=== PATIENT | male | born 1975 | race Caucasian/White ===

== ENCOUNTER 2018-07-13 05:02 | Observation (INO) ==
[2018-07-13] MEDS ORDERED: Nitroglycerin 0.4 MG TAB.SUBL SL PRN (05:12)
--- NOTE | 2018-07-13 05:43 | Emergency Department Note ---
Disposition Clinical Impression: History of automatic internal cardiac defibrillator (AICD) Chest pain Qualifiers: Chest pain type: unspecified Qualified Code(s): R07.9 - Chest pain, unspecified Disposition: Admitted As Inpatient Condition: Fair [facility]Primary Care Provider[facility] - Forms: ED Satisfaction Letter Time of Disposition: 06:42 General Adult HPI - General Chief complaint: ED Shortness of Breath/Dyspnea Stated complaint: Chest Pain Time Seen by Provider: 07/13/18 05:09 Source: patient, EMS Mode of arrival: EMS Limitations: no limitations Nursing Notes Reviewed: Yes Vital Signs Reviewed: Yes - History of Present Illness HPI Narrative: 42-year-old male with a history of CAD with AICD, hypertension, PE on Xarelto presents for evaluation of chest pain. Patient since via EMS. States that chest pain started earlier this morning. States it he has been feeling short of breath mostly with exertion. States he cannot walk up a flight of stairs. Patient also notes lower extremity swelling. States that the chest pain started with exertion and not completely resolve with rest. States that it was across anterior part of his chest and notes diaphoresis with nausea but no vomiting. Patient also felt that his AICD did fire. No abdominal pain. Patient states that he left the [facility] inpatient facility due to a right toe infection. Patient does admit to drinking alcohol earlier in the evening. Patient received 4 baby aspirin per EMS prior to ED arrival Pain Scale: 6 - Related Data Home Medications Medication Instructions Recorded Confirmed Unable To Obtain [Unable to Obtain] 07/13/18 07/13/18 Allergies Allergy/AdvReac Type Severity Reaction Status Date / Time No Known Allergies Allergy Verified 07/13/18 05:20 All systems ED: reviewed and negative except as stated. Constitutional: Denies: fever Cardiovascular: Reports: chest pain Respiratory: Reports: dyspnea. Denies: cough, sputum production Gastrointestinal: Reports: nausea. Denies: abdominal pain, vomiting Past Medical History - Past Medical History Source: patient Medical history: Reports: hypertension, other Psychiatric history: Reports: PTSD - Social History Smoking Status: Current every day smoker Smokeless Tobacco Status: No Alcohol use: Reports: recent Drug use: Reports: none Physical Exam - General Limitations: no limitations General appearance: alert, in no apparent distress - Head Head exam: atraumatic, normocephalic, normal inspection - Eye Eye exam: Present: normal appearance, PERRL, EOMI - ENT ENT exam: normal exam, normal oropharynx, mucous membranes moist - Neck Neck exam: Present: normal inspection - Chest Chest inspection: Present: normal inspection, symmetric chest wall rise - Respiratory Respiratory exam: Present: normal lung sounds bilaterally. Absent: respiratory distress - Cardiovascular Cardiovascular exam: Present: regular rate, normal rhythm - Abdominal Exam Abdominal exam: Present: soft, Non-Tender - Extremities Exam Extremities exam: Present: normal inspection. Absent: pedal edema - Back Exam Back exam: Present: normal inspection - Neurological Exam Neurological exam: Present: alert, oriented X3, CN II-XII intact - Skin Skin exam: Present: warm, dry, intact, normal color Course Course Narrative: Patient presents for concern of ACS and chest pain. Patient states that he has been taking his Xarelto as directed. Patient's clinical exam and history are most consistent with ACS unstable angina. Patient will get cardiopulmonary evaluation with EKG, chest x-ray troponin. - Reevaluation(s) Reevaluation #1: Patient seen and examined. Patient's blood pressure did improve with the nitroglycerin however the patient states that he enter never really helps with his pain. Patient does have a concerning history with diaphoresis and concerns of defibrillation with prior history of CHF and CAD. Patient states that he is willing to be admitted. Time: 06:41 Vital Signs Temperature 98.4 F 07/13/18 05:20 Pulse Rate 85 07/13/18 05:20 Respiratory Rate 22 07/13/18 05:20 Blood Pressure 162/89 07/13/18 05:20 O2 Sat by Pulse Oximetry 96 07/13/18 05:20 Temperature 98.4 F 07/13/18 05:20 Pulse Rate 99 07/13/18 06:36 Respiratory Rate 20 07/13/18 06:36 Blood Pressure 133/86 07/13/18 06:36 O2 Sat by Pulse Oximetry 96 07/13/18 06:36 Oxygen Delivery Oxygen Delivery Room Air Medical Decision Making - [facility] Narrative Medical decision making narrative: Patient presented for concerns of chest pain. Does have a concerning history of ACS unstable angina. Patient's initial EKG and troponin were negative. Patient's AICD. Awaiting report. Patient be signed out to the day shift provider. Patient does have a history however the patient's most consistent with ACS patient has been taking his anticoagulation as directed. - Lab Data Lab results reviewed: Yes I reviewed the patient's lab results. Result diagrams: 07/13/18 05:54 07/13/18 05:54 Lab Results 07/13/18 07/13/18 07/13/18 Range/Units 05:51 05:54 05:54 WBC 7.0 (4.3-11.1) K/mcL RBC 3.73 L (4.19-5.50) M/mcL Hgb 12.0 L (12.9-16.9) g/dL Hct 35.6 L (37.5-50.1) % MCV 95.4 (83.0-100.0) fL MCH 32.2 (28.0-33.3) pg MCHC 33.7 (31.6-35.5) g/dL RDW 15.5 H (11.5-14.5) % Plt Count 116 L (140-400) K/mcL MPV 8.7 L (9.4-12.4) fL Immature Gran % 0.4 (0-4) % Seg Neutrophils % 61.4 % Lymphocytes % 25.9 % Monocytes % 7.3 % Eosinophils % 4.4 % Basophils % 0.6 % Neutrophils # 4.3 (1.6-8.9) K/mcL Lymphocytes # 1.8 (0.6-4.6) K/mcL Monocytes # 0.5 (0.0-1.3) K/mcL Eosinophils # 0.3 (0.0-0.6) K/mcL Basophils # 0.0 (0.0-0.2) K/mcL PT 12.0 (9.4-12.1) Seconds INR 1.1 APTT 35.1 (26.0-36.0) Seconds Sodium (136-145) mEq/L Potassium (3.5-5.1) mEq/L Chloride (98-107) mEq/L Carbon Dioxide (23-29) mEq/L BUN (6-20) mg/dL Creatinine (0.70-1.30) mg/dL Est GFR ( Amer) (> 60) Est GFR (Non-Af Amer) (> 60) BUN/Creatinine Ratio (6-26) Glucose (70-105) mg/dL Calculated Osmolality (280-300) Calcium (8.6-10.3) mg/dL Troponin I (< 0.04) ng/mL B-Natriuretic Peptide 46 (Less than 100) pg/mL 07/13/18 Range/Units 05:54 WBC (4.3-11.1) K/mcL RBC (4.19-5.50) M/mcL Hgb (12.9-16.9) g/dL Hct (37.5-50.1) % MCV (83.0-100.0) fL MCH (28.0-33.3) pg MCHC (31.6-35.5) g/dL RDW (11.5-14.5) % Plt Count (140-400) K/mcL MPV (9.4-12.4) fL Immature Gran % (0-4) % Seg Neutrophils % % Lymphocytes % % Monocytes % % Eosinophils % % Basophils % % Neutrophils # (1.6-8.9) K/mcL Lymphocytes # (0.6-4.6) K/mcL Monocytes # (0.0-1.3) K/mcL Eosinophils # (0.0-0.6) K/mcL Basophils # (0.0-0.2) K/mcL PT (9.4-12.1) Seconds INR APTT (26.0-36.0) Seconds Sodium 134 L (136-145) mEq/L Potassium 4.3 (3.5-5.1) mEq/L Chloride 102 (98-107) mEq/L Carbon Dioxide 19 L (23-29) mEq/L BUN 15 (6-20) mg/dL Creatinine 0.80 (0.70-1.30) mg/dL Est GFR ( Amer) > 60 (> 60) Est GFR (Non-Af Amer) > 60 (> 60) BUN/Creatinine Ratio 19 (6-26) Glucose 92 (70-105) mg/dL Calculated Osmolality 278 L (280-300) Calcium 8.6 (8.6-10.3) mg/dL Troponin I < 0.03 (< 0.04) ng/mL B-Natriuretic Peptide (Less than 100) pg/mL - Radiology Data Radiology results reviewed: Yes I reviewed the patient's radiology results. Chest X-Ray 07/13/18 05:13 IMPRESSION: No focal airspace disease. Cardiomegaly and pulmonary venous hypertension. D/ / Shar Sessions / Shar Sessions Interpreting Provider: Shar Sessions - EKG Data EKG #1 EKG attestation: Yes I reviewed and interpreted this EKG. EKG shows normal: sinus rhythm Rate: normal Rhythm: NSR [place]/QRS: normal When compared to previous EKG there are: no significant changes Interpretation: nonspecific ST-T wave changes S.B.A.R. - S.B.A.RVika Situation: Demographics Background: Presenting Complaint Assessment: Vital Signs, Course and respsone to treatment, Patient/Family Expectation Recommendation: Barrier(s) to disposition, Recommendation based on pending studies, treatments, or consults S.B.A.R. Report Given to: Dr. Adry PartidaBVikaAKayley Repor Time: 07:19 Heart Score - Score History: Highly Suspicious EKG: Normal Age: Less than 45 Risk Factors: Equal/Greater than 3 risk factor or history of atherosclerotic disease Troponin: Less than normal limit HEART Score Total: 4
[2018-07-13 06:04] LABS: Basophils % 0.6 %; Eosinophils # 0.3 K/mcL (0.0-0.6); Eosinophils % 4.4 %; Hematocrit 35.6 % (37.5-50.1); Immature Granulocytes % 0.4 % (0-4); Lymphocytes # 1.8 K/mcL (0.6-4.6); Lymphocytes % 25.9 %; Mean Corpuscular HGB Conc 33.7 g/dL (31.6-35.5); Mean Corpuscular Hemoglobin 32.2 pg (28.0-33.3); Mean Corpuscular Volume 95.4 fL (83.0-100.0); Mean Platelet Volume 8.7 fL (9.4-12.4); Monocytes # 0.5 K/mcL (0.0-1.3); Monocytes % 7.3 %; Neutrophils # 4.3 K/mcL (1.6-8.9); Platelet Count 116 K/mcL (140-400); Red Blood Count 3.73 M/mcL (4.19-5.50); Red Cell Distribution Width 15.5 % (11.5-14.5); Segmented Neutrophils % 61.4 %
[2018-07-13 06:33] LABS: Troponin I < 0.03 ng/mL (< 0.04)
[2018-07-13] MEDS ORDERED: *HR* Morphine 2 MG/ML SYRINGE IVP ONE ×2 (06:40→07:57)
[2018-07-13] MEDS ORDERED: Ondansetron 4 MG/2 ML VIAL IVP ONE (06:41)
--- NOTE | 2018-07-13 06:44 | Emergency Department Note ---
Disposition Clinical Impression: History of automatic internal cardiac defibrillator (AICD) Chest pain Qualifiers: Chest pain type: unspecified Qualified Code(s): R07.9 - Chest pain, unspecified Disposition: Admitted As Inpatient Condition: Fair [facility]: [facility] [Primary Care Provider] - Forms: ED Satisfaction Letter Time of Disposition: 06:42 General Adult HPI - General Chief complaint: ED Shortness of Breath/Dyspnea Stated complaint: Chest Pain Time Seen by Provider: 07/13/18 05:09 Source: patient, EMS Mode of arrival: EMS Limitations: no limitations Nursing Notes Reviewed: Yes Vital Signs Reviewed: Yes - History of Present Illness Pain Scale: 6 - Related Data Home Medications Medication Instructions Recorded Confirmed Unable To Obtain [Unable to Obtain] 07/13/18 07/13/18 Allergies Allergy/AdvReac Type Severity Reaction Status Date / Time No Known Allergies Allergy Verified 07/13/18 05:20 Constitutional: Denies: fever Cardiovascular: Reports: chest pain Respiratory: Reports: dyspnea. Denies: cough, sputum production Gastrointestinal: Reports: nausea. Denies: abdominal pain, vomiting Past Medical History - Past Medical History Medical history: Reports: hypertension, other Psychiatric history: Reports: PTSD - Social History Smoking Status: Current every day smoker Smokeless Tobacco Status: No Alcohol use: Reports: recent Drug use: Reports: none Physical Exam - General Limitations: no limitations General appearance: alert, in no apparent distress Course Vital Signs Temperature 98.4 F 07/13/18 05:20 Pulse Rate 85 07/13/18 05:20 Respiratory Rate 22 07/13/18 05:20 Blood Pressure 162/89 07/13/18 05:20 O2 Sat by Pulse Oximetry 96 07/13/18 05:20 Temperature 98.4 F 07/13/18 05:20 Pulse Rate 99 07/13/18 06:36 Respiratory Rate 20 07/13/18 06:36 Blood Pressure 133/86 07/13/18 06:36 O2 Sat by Pulse Oximetry 96 07/13/18 06:36 Oxygen Delivery Oxygen Delivery Room Air Medical Decision Making - Lab Data Lab results reviewed: Yes I reviewed the patient's lab results. Result diagrams: 07/13/18 05:54 07/13/18 05:54 Lab Results 07/13/18 07/13/18 07/13/18 Range/Units 05:51 05:54 05:54 WBC 7.0 (4.3-11.1) K/mcL RBC 3.73 L (4.19-5.50) M/mcL Hgb 12.0 L (12.9-16.9) g/dL Hct 35.6 L (37.5-50.1) % MCV 95.4 (83.0-100.0) fL MCH 32.2 (28.0-33.3) pg MCHC 33.7 (31.6-35.5) g/dL RDW 15.5 H (11.5-14.5) % Plt Count 116 L (140-400) K/mcL MPV 8.7 L (9.4-12.4) fL Immature Gran % 0.4 (0-4) % Seg Neutrophils % 61.4 % Lymphocytes % 25.9 % Monocytes % 7.3 % Eosinophils % 4.4 % Basophils % 0.6 % Neutrophils # 4.3 (1.6-8.9) K/mcL Lymphocytes # 1.8 (0.6-4.6) K/mcL Monocytes # 0.5 (0.0-1.3) K/mcL Eosinophils # 0.3 (0.0-0.6) K/mcL Basophils # 0.0 (0.0-0.2) K/mcL PT 12.0 (9.4-12.1) Seconds INR 1.1 APTT 35.1 (26.0-36.0) Seconds Sodium (136-145) mEq/L Potassium (3.5-5.1) mEq/L Chloride (98-107) mEq/L Carbon Dioxide (23-29) mEq/L BUN (6-20) mg/dL Creatinine (0.70-1.30) mg/dL Est GFR ( Amer) (> 60) Est GFR (Non-Af Amer) (> 60) BUN/Creatinine Ratio (6-26) Glucose (70-105) mg/dL Calculated Osmolality (280-300) Calcium (8.6-10.3) mg/dL Troponin I (< 0.04) ng/mL B-Natriuretic Peptide 46 (Less than 100) pg/mL 07/13/18 Range/Units 05:54 WBC (4.3-11.1) K/mcL RBC (4.19-5.50) M/mcL Hgb (12.9-16.9) g/dL Hct (37.5-50.1) % MCV (83.0-100.0) fL MCH (28.0-33.3) pg MCHC (31.6-35.5) g/dL RDW (11.5-14.5) % Plt Count (140-400) K/mcL MPV (9.4-12.4) fL Immature Gran % (0-4) % Seg Neutrophils % % Lymphocytes % % Monocytes % % Eosinophils % % Basophils % % Neutrophils # (1.6-8.9) K/mcL Lymphocytes # (0.6-4.6) K/mcL Monocytes # (0.0-1.3) K/mcL Eosinophils # (0.0-0.6) K/mcL Basophils # (0.0-0.2) K/mcL PT (9.4-12.1) Seconds INR APTT (26.0-36.0) Seconds Sodium 134 L (136-145) mEq/L Potassium 4.3 (3.5-5.1) mEq/L Chloride 102 (98-107) mEq/L Carbon Dioxide 19 L (23-29) mEq/L BUN 15 (6-20) mg/dL Creatinine 0.80 (0.70-1.30) mg/dL Est GFR ( Amer) > 60 (> 60) Est GFR (Non-Af Amer) > 60 (> 60) BUN/Creatinine Ratio 19 (6-26) Glucose 92 (70-105) mg/dL Calculated Osmolality 278 L (280-300) Calcium 8.6 (8.6-10.3) mg/dL Troponin I < 0.03 (< 0.04) ng/mL B-Natriuretic Peptide (Less than 100) pg/mL - Radiology Data Radiology results reviewed: Yes I reviewed the patient's radiology results. Chest X-Ray 07/13/18 05:13 IMPRESSION: No focal airspace disease. Cardiomegaly and pulmonary venous hypertension. D/ / Shar Sims / Shar Sims Interpreting Provider: Shar Sims - EKG Data EKG #1 EKG attestation: Yes I reviewed and interpreted this EKG. EKG results narrative: EKG shows normal sinus rhythm with ventricular rate of 84. No ST segment elevation or depression. No arrhythmia or ectopy. Attestation Statement - Attestation Attestation: I, Pete Mccarty MD, personally evaluated this patient and discussed their management with the resident physician. I reviewed the resident's note and agree with the documented findings, medical decision making, and plan of care. I personally supervised and was present for the smith/critical portions of the following procedures completed by the resident: EKG interpretation. 42-year-old male presents to the emergency department with a complaint of chest pain. Patient has a cardiac history and has a defibrillator. He states he has been in the hospital at the [facility] for the past 4 days for some infection in his foot. He left there AMA about 7 PM last evening. After leaving he states he developed pain throughout his mid chest and mid upper back. No radiation the pain. He states he walked about 3 blocks and then broke out in a sweat. Some mild shortness of breath. He is currently on Eliquis for a PE. Patient requesting pain medication and states that the nitroglycerin never helps his chest pain. On examination patient is a well-developed well-nourished well-appearing male in no acute distress. He is alert and oriented 3. There is no cyanosis or diaphoresis. He does appear very anxious. Chest is nontender to palpation. Breath sounds are clear and equal bilaterally. Heart regular rate and rhythm. Abdomen soft and nontender with normal bowel sounds. EKG shows normal sinus rhythm with ventricular rate of 84. No ST segment elevation or depression. No arrhythmia or ectopy. Chest x-ray showed cardiomegaly and pulmonary venous hypertension with no focal airspace disease. Labs reviewed. Troponin negative. At morning shift change we are still awaiting reply from the hospitalist regarding admission. Patient is signed out to the oncoming dayshift team, Dr. Rider and Dr. Vigil.
[2018-07-13 06:48] LABS: BUN/Creatinine Ratio 19 (6-26); Blood Urea Nitrogen 15 mg/dL (6-20); Calcium 8.6 mg/dL (8.6-10.3); Carbon Dioxide 19 mEq/L (23-29); Chloride 102 mEq/L (98-107); Glucose 92 mg/dL (70-105); Osmolality,Calculated 278 (280-300); Potassium 4.3 mEq/L (3.5-5.1); Sodium 134 mEq/L (136-145); eGFR For Non-African Americans > 60 (> 60)
[2018-07-13 06:54] LABS: INR 1.1
[2018-07-13 06:57] LABS: Activated Partial Thrombo Time 35.1 Seconds (26.0-36.0)
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
[2018-07-13] MEDS ORDERED: *HR* HYDROcodone/Acet 5/325 mg TABLET PO PRN (10:21)
[2018-07-13] MEDS ORDERED: Acetaminophen 325 MG TABLET PO PRN (10:21)
[2018-07-13] MEDS ORDERED: Naloxone 0.4 MG/ML INJ IVP PRN (10:21)
[2018-07-13] MEDS ORDERED: tiZANidine 4 MG TABLET PO PRN (10:38)
[2018-07-13] MEDS ORDERED: *HR* Morphine 2 MG/ML SYRINGE IVP PRN (10:40)
[2018-07-13] MEDS: *HR* Morphine 2 MG/ML SYRINGE IVP PRN ×3 (12:09→20:15)
--- NOTE | 2018-07-13 13:27 | Cardiology Consult Note ---
Date of Encounter: 07/13/18 Time of Encounter: 13:20 Assessment and Plan (1) SOB (shortness of breath) Current Visit: Yes Status: Acute Per Cardiology: No ECG noted-- order pending. Chief complaint of MOHAN with diaphoresis and dizziness. Reports weight gain recently. Takes Lasix as needed home. ICD/pacer interrogation showed elevations of fluid measurements ongoing since 07/08/2018. We will give Lasix 40 mg IV 1 now and start 40 mg by mouth daily tomorrow. Will supplement strict EDWAR, daily weights, 2 L fluid restriction. Monitor BMP. We will check echo. We will attempt to obtain echo and stress test results from [facility] from February 2018. Of note also reports PE February 2018 and started on Eliquis-- reports compliance denies any active bleeding or blood loss. Discussed and reviewed with Dr. Adeola Tolentino. (2) History of automatic internal cardiac defibrillator (AICD) Current Visit: Yes Status: Acute Per Cardiology: History of [employer] pacemaker/ICD. Reports inserted at [facility] around 2013. Concern for ICD shock, however upon interrogation no therapies delivered and no abnormal arrhythmias. Electrolytes stable. Troponins negative 2. Reports catheterization 2013 showed no blockages. Again will attempt to obtain stress test results from February 2018 from outside facility. Discussion w patient/family: The assessment and plan as outlined above was discussed with the patient and/or family members who expressed understanding and agreement. All questions were answered. Thank you for involving us in the care of your patient. Please call with any questions. History of Present Illness Consult date: 07/13/18 Requesting physician: Ivette Buenrostro Consult reason: ICD Shock, CP Chief complaint: SOB, Dizziness, diaphoresis History of present illness: Mr. Henry is a 42 year old male with a relevant past medical history of hypertension, has Pacer/ICD, history of PE on Eliquis, and nicotine abuse. Cardiology consult for chest pain and concerns of ICD shock. Patient reports increased weight over the past few weeks of about 15 pounds. Additionally, reports increased dyspnea on exertion and frequency diaphoresis. He denies any chest pain symptoms. He reports walking around 4 AM about 4 blocks to a friend's house and got extremely diaphoretic, dizzy, short of breath and had to sit down on the side of the curb. He denied any chest pain at that time. He denied any syncope or falls. Reports concerns of possible ICD shock. He denies any active bleeding or blood loss. He reports history of pacemaker and ICD inserted 2013 at [facility]. He reports February 2018 had stress test and echo completed at the [facility]. He also reports around that time diagnosed with PE and started on Eliquis. He confirms past history of nicotine abuse and currently vapes. He denies any alcohol use or recreational drug use. He reports he takes Lasix as needed at home. Past Med Surg Social Fam HX - Past Medical History Attestation: Yes The following information was validated with the patient. Source: patient Medical history: CHF, hypertension, other Psychiatric history: PTSD - Past Surgical History Surgical History: AICD, pacemaker - Social History Smoking Status: Current every day smoker Smokeless Tobacco Status: No Alcohol use: occasionally, recent Drug use: none - Family History Mother Hx Family Cardiac Disorders: Yes Medications and Allergies Amoxicillin/Clavulanate [Augmentin] 875 mg PO BIDWM 07/13/18 [History] Apixaban [Eliquis] 5 mg PO BID 07/13/18 [History] Carvedilol [Coreg] 6.2 mg PO BID 07/13/18 [History] Lisinopril [Zestril] 5 mg PO DAILY 07/13/18 [History] Omeprazole 40 mg PO DAILY 07/13/18 [History] Sertraline [Zoloft] 200 mg PO DAILY 07/13/18 [History] Tizanidine HCl 4 mg PO TID PRN 07/13/18 [History] Allergy/AdvReac Type Severity Reaction Status Date / Time No Known Allergies Allergy Verified 07/13/18 05:20 All Systems Review: The remainder of the systems were reviewed and are negative - Constitutional Constitutional: weight gain - Cardiovascular Cardiovascular: as per HPI, diaphoresis, dyspnea on exertion, leg edema Physical Examination Vital Signs, Last 4 Hours Temp Pulse Resp BP Pulse Ox 07/13/18 10:14 18 140/94 07/13/18 10:02 97.8 F 81 16 144/89 96 General: Conversant, No Apparent Distress HEENT: Atraumatic, Normocephaly, Mucus Membranes Moist Neck: No JVD, Normal carotid pulses Cardiac: Reg Rate and Rhythm, Normal S1 and S2, No Murmur Lungs: Normal Breath Sounds, No Wheeze, Rales, Rhonchi, Other (Mild conversational dyspnea noted) Neuro: Alert and responsive, No focal deficits noted, Other (Anxious) Abdomen: Soft, Non-Tender Skin: No rashes noted on visualized skin Musculoskeletal: No Chest Wall Tenderness Extremities: No Clubbing, No Cyanosis, Normal Pulses, Other (Trace bilateral nonpitting lower extremity edema) Results 07/13/18 05:54 07/13/18 05:54 Lab Results 07/13/18 07/13/18 07/13/18 05:51 05:54 05:54 WBC 7.0 Hgb 12.0 L Hct 35.6 L Plt Count 116 L INR 1.1 APTT 35.1 Sodium Potassium Chloride Carbon Dioxide BUN Creatinine Glucose Calcium Troponin I B-Natriuretic Peptide 46 07/13/18 07/13/18 05:54 11:00 WBC Hgb Hct Plt Count INR APTT Sodium 134 L Potassium 4.3 Chloride 102 Carbon Dioxide 19 L BUN 15 Creatinine 0.80 Glucose 92 Calcium 8.6 Troponin I < 0.03 < 0.03 B-Natriuretic Peptide - Imaging and Cardiology Echo: pending - EKG Interpretation EKG results cardiology: other (No ECG noted on floor, order for ECG pending) Consult Discharge Plan - Plan [facility]errals: [facility] [Primary Care Provider] -
[2018-07-13] MEDS ORDERED: Furosemide 40 MG/4 ML VIAL IVP ONE (14:30)
[2018-07-13] MEDS ORDERED: *HR* Promethazine 25 MG/ML VIAL IVP PRN (15:03)
[2018-07-13] MEDS ORDERED: *HR* LORazepam 2 MG/ML VIAL IVP PRN ×2 (15:03)
[2018-07-13] MEDS: Nicotine 14 MG PATCH.TD24 TD SCH (16:13)
[2018-07-13] MEDS: Folic Acid 1 MG TABLET PO SCH (16:14)
[2018-07-13] MEDS: Thiamine (B-1) 100 MG TABLET PO SCH (16:14)
[2018-07-13] MEDS: Vitamin B Complex/Vit C/Vit E 1 EACH TABLET PO SCH (16:14)
[2018-07-13] MEDS: Ondansetron ODT 4 MG TAB.RAPDIS SL PRN (16:29)
[2018-07-13] MEDS ORDERED: Nicotine 2 MG GUM BC PRN (16:44)
[2018-07-13] MEDS ORDERED: hydrOXYzine pamoate 25 MG CAPSULE PO PRN (16:44)
[2018-07-13] MEDS ORDERED: Melatonin 3 MG TABLET PO PRN (16:44)
[2018-07-13] MEDS ORDERED: Furosemide 40 MG TABLET PO PRN (16:44)
[2018-07-13] MEDS ORDERED: Thiamine (B-1) 100 MG, Folic Acid 1 MG, MVI, adult with vitamin K 10 ML in 0.9 % Sodi... IVPB SCH (18:00)
[2018-07-13] MEDS: traMADol 50 MG TABLET PO PRN (18:12)
[2018-07-13] MEDS: Gabapentin 400 MG CAPSULE PO SCH ×2 (18:12→20:14)
[2018-07-13] MEDS: *HR* LORazepam 2 MG/ML VIAL IVP PRN (18:19)
[2018-07-13] MEDS: Apixaban 5 MG TABLET PO SCH (20:14)
[2018-07-14] MEDS: *HR* LORazepam 2 MG/ML VIAL IVP PRN ×2 (00:20→05:22)
[2018-07-14] MEDS: *HR* Morphine 2 MG/ML SYRINGE IVP PRN ×2 (00:20→05:09)
[2018-07-14] MEDS: Ondansetron ODT 4 MG TAB.RAPDIS SL PRN (00:20)
[2018-07-14 05:38] LABS: Hematocrit 37.5 % (37.5-50.1); Hemoglobin 12.7 g/dL (12.9-16.9); Mean Corpuscular HGB Conc 33.9 g/dL (31.6-35.5); Mean Corpuscular Hemoglobin 31.9 pg (28.0-33.3); Mean Corpuscular Volume 94.2 fL (83.0-100.0); Platelet Count 123 K/mcL (140-400); Red Blood Count 3.98 M/mcL (4.19-5.50); Red Cell Distribution Width 15.2 % (11.5-14.5)
[2018-07-14 05:45] LABS: Prothrombin Time 11.1 Seconds (9.4-12.1)
[2018-07-14 05:48] LABS: Activated Partial Thrombo Time 35.5 Seconds (26.0-36.0)
[2018-07-14 06:09] LABS: Alanine Aminotransferase 19 Units/L (7-52); Albumin 4.2 g/dL (3.5-5.7); Albumin/Globulin Ratio 1.2 (1.1-2.2); Alkaline Phosphatase 75 Units/L (34-104); Aspartate Amino Transferase 23 Units/L (13-39); BUN/Creatinine Ratio 16 (6-26); Bilirubin,Total 0.5 mg/dL (0.3-1.0); Blood Urea Nitrogen 19 mg/dL (6-20); Calcium 9.5 mg/dL (8.6-10.3); Carbon Dioxide 26 mEq/L (23-29); Chloride 103 mEq/L (98-107); Chol/HDL Ratio 2.5 (0-4.9); Cholesterol 134 mg/dL (< 200); Globulin 3.6 g/dL (2.4-3.5); Glucose 114 mg/dL (70-105); HDL Cholesterol 54 mg/dL (40-59); LDL Cholesterol,Calculated 59 mg/dL (0-99); Magnesium 1.9 mg/dL (1.6-2.6); Osmolality,Calculated 293 (280-300); Phosphorous 3.7 mg/dL (2.7-4.5); Sodium 140 mEq/L (136-145); Total Protein 7.8 g/dL (6.4-8.9); Triglycerides 103 mg/dL (< 150); eGFR For Non-African Americans > 60 (> 60)
[2018-07-14 06:44] VITALS: BP 134/96
[2018-07-14] MEDS: Folic Acid 1 MG TABLET PO SCH (08:52)
[2018-07-14] MEDS: Apixaban 5 MG TABLET PO SCH (08:53)
[2018-07-14] MEDS: Gabapentin 400 MG CAPSULE PO SCH (08:53)
[2018-07-14] MEDS: Nicotine 14 MG PATCH.TD24 TD SCH (08:55)
[2018-07-14] MEDS: Vitamin B Complex/Vit C/Vit E 1 EACH TABLET PO SCH (08:59)
[2018-07-14] MEDS ORDERED: Aspirin Enteric Coated 81 MG Tablet PO SCH (09:00)
[2018-07-14] MEDS ORDERED: Furosemide 40 MG TABLET PO SCH (09:00)
[2018-07-14] MEDS: Thiamine (B-1) 100 MG TABLET PO SCH (09:04)
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
[2018-07-14] MEDS: traMADol 50 MG TABLET PO PRN (09:55)
--- NOTE | 2018-07-14 09:59 | Event Note ---
Date of Encounter: 07/14/18 Time of Encounter: 09:15 - Cardiology Event Note Attempted to see patient, but security in the room. ECHO: Impressions: LVEF 40-45%. Mildly dilated left ventricle. Mild concentric left ventricular hypertrophy. Indeterminate diastolic function. Normal right ventricular structure and function. No significant valvular dysfunction No evidence of pulmonary hypertension. A device lead was visualized in the right atrium and right ventricle. Laboratory Tests 07/13/18 07/13/18 07/13/18 05:51 05:54 05:54 Hgb 12.0 L Hct 35.6 L INR 1.1 Potassium Creatinine Est GFR (Non-Af Amer) Troponin I B-Natriuretic Peptide 46 LDL Cholesterol, Calc 07/13/18 07/13/18 07/13/18 05:54 11:00 16:07 Hgb Hct INR Potassium 4.3 Creatinine 0.80 Est GFR (Non-Af Amer) > 60 Troponin I < 0.03 < 0.03 < 0.03 B-Natriuretic Peptide LDL Cholesterol, Calc 07/13/18 07/14/18 07/14/18 22:12 05:04 05:04 Hgb 12.7 L Hct 37.5 INR 1.0 Potassium Creatinine Est GFR (Non-Af Amer) Troponin I < 0.03 B-Natriuretic Peptide LDL Cholesterol, Calc 07/14/18 07/14/18 05:04 05:04 Hgb Hct INR Potassium Creatinine 1.16 Est GFR (Non-Af Amer) > 60 Troponin I B-Natriuretic Peptide 48 LDL Cholesterol, Calc 59 Net I&O -1580ml. Has known CMP with ICD-- previous EF unknown. Trops negative x 4. ICD did not discharge per interrogation yesterday. Discussed and reviewed with Dr. Cabrera Tolentino, no further recs, cardiology signing off.
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
== END 2018-07-14 13:40 | disposition home or self-care (01) ==
LOC: EMEROOARM 05:02 → 2NNU 09:03 → SUATTDRO 09:03 → INTOOBSV 09:03 → 3BNU 09:09
PROVIDERS: ADMIT Internal Medicine Nephrology; ATTEND Student in an Organized Health Care Education/Training Program